=== PATIENT | male | born 2000 | race Caucasian/White ===

== ENCOUNTER 2022-03-19 11:14 | Emergency (ER) | payer MEDICAID ==
[~2022-03-19] VITALS: Ht 167.6 cm; Wt 85.0 kg
[2022-03-19 11:19] VITALS: BP 135/77
[2022-03-19] MEDS ORDERED: NAPR500T7 MT (11:49)
[2022-03-19] MEDS ORDERED: OFLO5DRO4 RIGHT EAR (11:49)
[2022-03-19] MEDS ORDERED: AMOX1TAB16 MT (11:49)
== END 2022-03-19 11:58 | disposition home or self-care (01) ==
LOC: ER 11:31
DX: H60.91 Unspecified otitis externa, right ear (principal)
CPT/HCPCS: 99283